=== PATIENT | female | born 1945 | race Caucasian/White ===

== ENCOUNTER 2022-05-14 13:10 | Inpatient (IN) | payer OTHER, MEDICARE ==
[2022-05-14 13:39] LABS: #Basophils 0.2 thou/uL (0.0-0.2); #Eosinphils 0.2 thou/uL (0.0-0.7); #Lymphocytes 1.3 thou/uL (1.20-3.40); #Monocytes 0.7 thou/uL (0.11-0.59); #Neutrophils 8.2 thou/uL (1.40-6.50); %Basophils 2.2 % (0.0-1.0); %Eosinophils 2.3 % (0.0-10.0); %Lymphocytes 12.1 % (21.0-51.0); %Monocytes 6.3 % (0.0-10.0); %Neutrophils 77.1 % (42.0-75.0); Hemoglobin 14.1 g/dL (12.0-16.0); Mean Corpuscular HGB CONC 32.2 g/dL (32.0-36.0); Mean Corpuscular Hemoglobin 28.9 pg (27.0-31.0); Mean Corpuscular Volume 89.8 fL (78.0-98.0); Mean Platelet Volume 8.4 fL (7.4-10.4); Platelet Count 210 thou/uL (130-400); RBC Distribution Width 12.8 % (11.5-14.5); Red Blood Cell (RBC) Count 4.89 mill/uL (4.20-5.40); White Blood Cell (WBC) Count 10.6 thou/uL (4.8-10.8)
[2022-05-14] MEDS ORDERED: Ketorolac Tromethamine 30 MG/ML VIAL ONE (13:50)
[2022-05-14] MEDS ORDERED: Ondansetron PF 4 MG/2 ML Vial ONE (13:50)
[2022-05-14] MEDS ORDERED: Morphine 4 MG/ML VIAL ONE (13:50)
[2022-05-14 13:54] LABS: ALT (SGPT) 64 U/L (8-55); AST (SGOT) 52 U/L (5-34); Albumin 4.1 g/dL (3.4-4.8); Alkaline Phosphatase 114 U/L (40-110); Anion Gap 14 mmol/L (10-20); BUN (Urea Nitrogen) 14 mg/dL (9.8-20.1); Bilirubin, Total 0.9 mg/dL (0.2-1.2); Calc. Creatinine Clearance 0 mL/min (70-130); Calcium 9.7 mg/dL (7.8-10.44); Carbon Dioxide 22 mmol/L (23-31); Chloride 107 mmol/L (98-107); Estimated GFR 80; Globulin 2.6 g/dL (2.4-3.5); Glucose 138 mg/dL (83-110); Potassium 4.3 mmol/L (3.5-5.1); Protein, Total 6.7 g/dL (5.8-8.1); Sodium 139 mmol/L (136-145)
[2022-05-14 15:10] LABS: INR-International Normal Ratio 1.1; Prothrombin Time 13.8 sec (12.0-14.7)
[2022-05-14 15:11] LABS: PTT 27.4 sec (22.9-36.1)
[2022-05-14] MEDS ORDERED: hydrALAZINE 20 MG/ML VIAL SLOW IVP PRN (16:09)
[2022-05-14] MEDS ORDERED: Morphine 2 MG/ML VIAL SLOW IVP PRN (16:09)
[2022-05-14] MEDS ORDERED: Dextrose 50% Abboject 50 ML SYRINGE SLOW IVP PRN (16:09)
[2022-05-14] MEDS ORDERED: Ondansetron ODT 4 MG TAB PO PRN (16:09)
[2022-05-14] MEDS ORDERED: Dextrose 5% in Water 1,000 ML IV PRN (16:09)
[2022-05-14] MEDS ORDERED: Ondansetron PF 4 MG/2 ML Vial IVP PRN (16:09)
[2022-05-14] MEDS ORDERED: Cyclobenzaprine 10 MG TAB PO PRN (16:15)
[2022-05-14] MEDS ORDERED: traMADol HCl 50 MG TAB PO PRN (16:16)
[2022-05-14 16:59] LABS: Magnesium 2.2 mg/dL (1.6-2.6); Phosphorus 3.5 mg/dL (2.3-4.7)
[2022-05-14] MEDS: Acetaminophen 500 MG TAB PO SCH ×2 (18:00→23:45)
[2022-05-14] MEDS: Senokot S 8.6-50 MG TAB PO SCH (20:10)
[2022-05-14 20:22] VITALS: BMI 24.5
[2022-05-14] MEDS ORDERED: Atorvastatin Calcium 40 MG TAB PO SCH (21:00)
[2022-05-14] MEDS ORDERED: Famotidine 20 MG TAB PO SCH (21:00)
[2022-05-14] MEDS ORDERED: Amlodipine 5 MG TAB PO SCH (21:00)
[2022-05-14 22:33] LABS: SARS-CoV-2 NAA Rapid Test Not Detected (NotDetected)
[2022-05-15] MEDS: Acetaminophen 500 MG TAB PO SCH (05:14)
[2022-05-15] MEDS ORDERED: Levothyroxine Sodium 50 MCG TAB PO SCH (06:00)
[2022-05-15 06:37] LABS: #Eosinphils 0.2 thou/uL (0.0-0.7); #Lymphocytes 1.8 thou/uL (1.20-3.40); #Monocytes 0.8 thou/uL (0.11-0.59); #Neutrophils 4.7 thou/uL (1.40-6.50); %Basophils 0.3 % (0.0-1.0); %Eosinophils 2.7 % (0.0-10.0); %Lymphocytes 24.3 % (21.0-51.0); %Monocytes 10.7 % (0.0-10.0); %Neutrophils 62.1 % (42.0-75.0); Hemoglobin 12.6 g/dL (12.0-16.0); Mean Corpuscular HGB CONC 32.3 g/dL (32.0-36.0); Mean Corpuscular Hemoglobin 29.4 pg (27.0-31.0); Mean Platelet Volume 8.5 fL (7.4-10.4); Platelet Count 188 thou/uL (130-400); RBC Distribution Width 12.9 % (11.5-14.5); White Blood Cell (WBC) Count 7.6 thou/uL (4.8-10.8)
[2022-05-15 06:57] LABS: Anion Gap 12 mmol/L (10-20); BUN (Urea Nitrogen) 13 mg/dL (9.8-20.1); Calc. Creatinine Clearance 59 mL/min (70-130); Carbon Dioxide 28 mmol/L (23-31); Chloride 107 mmol/L (98-107); Estimated GFR 78; Glucose 114 mg/dL (83-110); Magnesium 2.1 mg/dL (1.6-2.6); Potassium 3.7 mmol/L (3.5-5.1); Sodium 143 mmol/L (136-145)
[2022-05-15 06:58] LABS: Phosphorus 3.9 mg/dL (2.3-4.7)
[2022-05-15] MEDS ORDERED: Acetaminophen/Codeine 30-300mg Tablet PO PRN (08:22)
[2022-05-15] MEDS ORDERED: Polyethylene Glycol 3350 17 GM Packet PO SCH (09:00)
[2022-05-15] MEDS ORDERED: Venlafaxine HCl XR 75 MG CAP PO SCH (09:00)
[2022-05-15] MEDS: Senokot S 8.6-50 MG TAB PO SCH (09:35)
[2022-05-15] MEDS ORDERED: Acetaminophen 325 MG TAB PO SCH (12:00)
[2022-05-15 15:00] VITALS: BP 134/74; TEMP 97.9
== END 2022-05-15 15:00 | disposition home or self-care (01) | DRG 84 ==
LOC: ERS 13:10 → SURG A 16:14
PROVIDERS: ADMIT Surgery; ATTEND Surgery
DX: S06.6X9A Traumatic subarachnoid hemorrhage with loss of consciousness of unspecified duration, initial encounter (principal); I10 Essential (primary) hypertension; I48.91 Unspecified atrial fibrillation; K21.9 Gastro-esophageal reflux disease without esophagitis; E78.5 Hyperlipidemia, unspecified; F32.A Depression, unspecified; S42.002A Fracture of unspecified part of left clavicle, initial encounter for closed fracture; E78.00 Pure hypercholesterolemia, unspecified; Z20.822 Contact with and (suspected) exposure to COVID-19; S00.83XA Contusion of other part of head, initial encounter; Z88.2 Allergy status to sulfonamides; Z90.49 Acquired absence of other specified parts of digestive tract; V89.2XXA Person injured in unspecified motor-vehicle accident, traffic, initial encounter; Y92.410 Unspecified street and highway as the place of occurrence of the external cause
CPT/HCPCS: 36415; 70450; 71045; 72125; 80048; 80053; 83735; 84100; 85025; 85610; 85730; 96374; 96375; G0390; J1885; J2270; J2405; U0002

== ENCOUNTER 2022-05-27 12:32 | Outpatient (CLI) | payer MEDICARE, OTHER | END 2022-05-27 12:33 | disposition home or self-care (01) | LOC: SCSCT 12:32 | PROVIDERS: ATTEND Physician Assistant Surgical | DX: I60.9 Nontraumatic subarachnoid hemorrhage, unspecified (principal); M89.8X1 Other specified disorders of bone, shoulder; S42.022A Displaced fracture of shaft of left clavicle, initial encounter for closed fracture | CPT/HCPCS: 70450 ==